=== PATIENT | female | born 1965 | race Caucasian/White ===

== ENCOUNTER 2018-06-03 07:56 | Day surgery (SDC) | payer BC, SELFPAY ==
--- NOTE | 2018-06-03 06:57 | W.COLOREPORT ---
Date of service: 06/03/18 Time of Service: 08:57 Colonoscopy Report Date of procedure: 06/03/18 Pre-op diagnosis general: Colon Cnacer Screening Post-op diagnosis procedure note: same Procedure: Colonoscopy Surgeon: Joann Grande Anesthesia proc note operative: other (General/ ASA 2/ Yolanda Gutierrez CRNA and YUNI Serrano) Estimated blood loss (mL): 0 Pathology: none sent Complications: None Disposition: same day Indications: Mrs. Hilario is a pleasant 53 year old female who was seen in the office for a screening Colonoscopy. This is her first colonoscopy. Risks, benefits and complications have been reviewed. Complications include but are not limited to bleeding, pain, perforation, missed small lesion/polyp, sore throat, aspiration and adverse reaction to the medications. Questions were entertained and answered to their satisfaction and they wished to proceed. No guarantees were given or implied. Prep: Miralax/Dulcolax Procedure Start Time: 08:57 Procedure End Time: 09:20 Retraction Time: 19 minutes Findings: Mild ascending colon diverticulosis No polyps Procedure Description: After informed consent was obtained the patient was taken to the procedure room and placed in a left decubitous position. Monitors were applied and a time out was done. The patients name, date of , procedure, allergies to medications and metal in their body was reviewed. The patient was then sedated. Once sedated and comfortable a rectal exam was done. External exam was normal. Internal exam revealed a normal sphincter tone and no palpable masses. The scope was then introduced and retro-flexed. No internal hemorrhoids were identified and no masses or polyps. The scope was then advanced to the cecum without difficulty. The TI and appendiceal orifice were identified. The prep was adequate. The scope was then slowly retracted over 19 minutes back into the rectum. There were no polyps identified. There was mild diverticulosis in the ascending colon. The scope was removed and the patient was woken up and taken back to Same day surgery in stable condition. The patient tolerated the procedure well and there were no immediate complications. Follow up: The patient should follow up in 10 years unless they develop changes in bowel habits or other new gastrointestinal complaints.
--- NOTE | 2018-06-03 06:59 | W.PM.DSUDISC ---
Discharge Plan Disposition Patient Disposition: HOME Condition: Good Discharge Details Reason For Visit: Colon Cancer Screening Attending Provider: Joann Grande Primary Care Provider: Francois Tam Home Meds and New Rx's Prescriptions: Continued omeprazole 40 mg capsule,delayed release(DR/EC) 40 mg PO DAILY RF: 0 lorazepam 0.5 mg tablet 0.5 mg PO .Q6 PRNRF: 0 estradiol 2 mg tablet 2 mg PO DAILY RF: 0 cholecalciferol (vitamin D3) 1,000 unit capsule 2,000 unit PO DAILY RF: 0 magnesium 200 mg tablet 200 mg PO DAILY RF: 0 Body, Hair, Skin and Nails 3-133 mg-mcg capsule PO DAILY RF: 0 naproxen sodium [Aleve] 220 mg capsule 440 mg PO DAILY PRNRF: 0 Discontinued polyethylene glycol 3350 17 gram/dose powder 238 g PO ONCE Qty: 238 RF: 0 bisacodyl [Dulcolax (bisacodyl)] 5 mg tablet,delayed release (DR/EC) 5 mg PO ONCE Qty: 4 RF: 0 Discharge Instructions Instructions: Colonoscopy (DC), Diverticulosis (DC) Additional Instructions: Findings: mild right sided diverticulosis Follow up: 10 years Please call if you develop: fevers >101.5 Nausea or Vomiting Abdominal pain that is not transient DAY SURGERY UNIT POST COLONOSCOPY INSTRUCTIONS 1. Because there will be medication in your system for the next 24 hours, you may feel a little sleepy. Your coordination will be affected. Therefore: a. Do not drive or operate dangerous equipment for 24 hours. b. Do not drink alcohol beverages for 24 hours (not even beer). c. Plan to go home and rest for the day. 2. Generally there are no restrictions on your activity after a day or so has gone by, but you may feel a bit fatigued for a few days. 3 After you arrive home you may have a light meal and return to a normal diet as you can tolerate it without feeling sick to your stomach. 4. After surgery, you may feel pain or discomfort. This should be only transient, but if it persists please contact your doctor. 5. If there are any questions regarding the findings of your procedure, please feel free to contact your doctor. 6. If you are unable to contact your doctor with a problem, contact the hospital at [phone]. 7. Continue all your regular medications unless directed otherwise. I understand the above instructions and have no questions. Signature of Patient or Responsible Adult Escort Date/Time Name of Responsible Adult Escort Signature of Nurse Date/Time Stand Alone Forms: Lisbeth Camacho (ERIKU) Activity:: Activity as Tolerated Diet:: High fiber diet Discharge Orders Discharge Orders: Discharge Order (Routine); Ordered 06/03/18 Ordered By: Joann Grande DS: Diagnosis Discharge Diagnosis (1) S/P colonoscopy: Status: Acute (2) Diverticulosis large intestine w/o perforation or abscess w/o bleeding: Status: Acute
[2018-06-03 08:12] VITALS: BP 129/72; PULSE 75; RESP 16; TEMP 36.2; O2SAT 100
[2018-06-03] MEDS: Lactated Ringers 1,000 ML 80 ML IV (08:34)
[2018-06-03 10:10] VITALS: BP 130/78; PULSE 62; RESP 16; TEMP 35.8; O2SAT 100
== END 2018-06-03 10:20 | disposition home or self-care (01) ==
LOC: SUR 07:57
PROVIDERS: PCP Family Medicine; Visit Provider Surgery
PROC: 0DJD8ZZ Inspection of Lower Intestinal Tract, Via Natural or Artificial Opening Endoscopic (ICD-10-PCS; CPT 45378; principal; 2018-06-03 08:45)
DX: Z12.11 Encounter for screening for malignant neoplasm of colon (principal); K57.30 Diverticulosis of large intestine without perforation or abscess without bleeding; K21.9 Gastro-esophageal reflux disease without esophagitis
CPT/HCPCS: 45378